=== PATIENT | male | born 1980 | race Caucasian/White ===

== ENCOUNTER 2017-06-21 10:29 | Emergency (ER) | payer BC ==
--- NOTE | 2017-06-21 13:05 | UC ---
Respiratory Complaint HPI - HPI Summary HPI Summary: patient has had cough and cold symptoms that have worsened over the past 4 days. fever, and chest burning with deep breaths. body feels sore. - History of Current Complaint Stated Complaint: RESPIRATORY,FEVER Time Seen by Provider: 06/21/17 12:57 Hx Obtained From: Patient Onset/Duration: Sudden Onset, Lasting Days Timing: Constant Severity Initially: Moderate Severity Currently: Moderate Character: Cough: Productive Aggravating Factors: Exertion, Deep Breaths Associated Signs And Symptoms: Positive: Dyspnea, Wheezing, Nasal Congestion, Sinus Discomfort - Allergies/Home Medications Allergies/Adverse Reactions: Allergies Allergy/AdvReac Type Severity Reaction Status Date / Time No Known Allergies Allergy Verified 06/21/17 13:01 Home Medications: Home Medications Dm/Acetaminophen/Doxylamine [Night Time Cold & Flu Liquid] 30 ml PO PRN [History] Ibuprofen TAB* [Advil TAB*] 400 mg PO Q6H PRN 06/21/17 [History Confirmed ] PMH/Surg Hx/FS Hx/Imm Hx Previously Healthy: Yes - Surgical History Surgical History: Yes Surgery Procedure, Year, and Place: right wrist surgery - Family History Known Family History: Positive: Cardiac Disease, Hypertension - Social History Alcohol Use: Occasionally Substance Use Type: None Smoking Status (MU): Never Smoked Tobacco Review of Systems Constitutional: Fever, Chills, Fatigue Skin: Negative Eyes: Negative ENT: Sore Throat, Ear Ache, Sinus Congestion Respiratory: Cough Cardiovascular: Negative Gastrointestinal: Diarrhea Motor: Negative Neurovascular: Negative Musculoskeletal: Negative Neurological: Headache Psychological: Negative Is Patient Immunocompromised?: No All Other Systems Reviewed And Are Negative: Yes Physical Exam Triage Information Reviewed: Yes Appearance: Well-Nourished, Ill-Appearing, Pain Distress Vital Signs Reviewed: Yes Eye Exam: Normal ENT: Positive: Pharyngeal erythema, Nasal congestion, TMs normal Dental Exam: Normal Neck exam: Normal Neck: Positive: Supple, Nontender, No Lymphadenopathy Respiratory Exam: Normal Respiratory: Positive: Chest non-tender, Lungs clear, Normal breath sounds Cardiovascular Exam: Normal Cardiovascular: Positive: RRR, No Murmur, Pulses Normal Abdominal Exam: Normal Abdomen Description: Positive: Nontender, No Organomegaly, Soft Bowel Sounds: Positive: Present Musculoskeletal Exam: Normal Musculoskeletal: Positive: Strength Intact, ROM Intact, No Edema Neurological Exam: Normal Neurological: Positive: Alert, Muscle Tone Normal Psychological Exam: Normal Skin Exam: Normal Respiratory Course/Dx - Course Course Of Treatment: hx obtained, exam performed ,meds reviewed, flu swab obtained and is negative, treated for sinusitis and bronchitis - Differential Dx/Diagnosis Differential Diagnosis/HQI/PQRI: Bronchitis, Influenza, Laryngitis, Sinusitis Provider Diagnoses: sinusitis. bronchitis Discharge - Discharge Plan Condition: Stable Disposition: HOME Prescriptions: Albuterol HFA INHALER* [Ventolin HFA Inhaler*] 2 puff INH Q4H PRN #1 mdi PRN Reason: Sob/Wheezing Azithromyxin PHIL (NF) [Z-Phil (Zithromax) 250 mg tabs #6] 2 tab PO .TODAY, THEN 1 DAILY #6 tab predniSONE TAB* [Deltasone TAB*] 40 mg PO DAILY #14 tab Patient Education Materials: Acute Bronchitis (ED), Sinusitis (ED) Referrals: Bucky Reaves DO [Primary Care Provider] - Additional Instructions: 1. take the medication as prescribed. 2. Increase fluid intake and get plenty of rest. 3. Follow up with any worsening symptoms, cough may last for a few weeks.
[2017-06-21 13:11] VITALS: BP 130/68
== END 2017-06-21 13:41 | disposition home or self-care (01) ==
LOC: UCCORT 10:29
DX: J32.9 Chronic sinusitis, unspecified (principal); J40 Bronchitis, not specified as acute or chronic
CPT/HCPCS: 87502; 99212; G0463

== ENCOUNTER 2018-05-30 17:48 | Emergency (ER) | payer BC ==
[2018-05-30 18:17] VITALS: BP 146/86
[2018-05-30] MEDS ORDERED: ValACYclovir (*) 1 GM TAB PO ONE (18:28)
--- NOTE | 2018-05-30 18:30 | UC ---
Skin Complaint HPI - HPI Summary HPI Summary: Rash on back started last night w/ burning stinging sensation. denies stress or recent illness. - History of Current Complaint Chief Complaint: UCSkin Time Seen by Provider: 05/30/18 18:17 Stated Complaint: PAINFUL RASH ON BACK Hx Obtained From: Patient Pain Intensity: 3 Pain Scale Used: 0-10 Numeric Location: Discrete Aggravating Factor(s): Nothing Alleviating Factor(s): Nothing - Allergy/Home Medications Allergies/Adverse Reactions: Allergies Allergy/AdvReac Type Severity Reaction Status Date / Time No Known Allergies Allergy Verified 05/30/18 18:14 PMH/Surg Hx/FS Hx/Imm Hx Previously Healthy: Yes - Surgical History Surgical History: Yes Surgery Procedure, Year, and Place: right wrist surgery. LEFT WRIST/ELBOW - Family History Known Family History: Positive: Cardiac Disease, Hypertension - Social History Alcohol Use: Rare Substance Use Type: None Smoking Status (MU): Never Smoked Tobacco Review of Systems All Other Systems Reviewed And Are Negative: Yes Constitutional: Positive: Negative. Negative: Fever Skin: Positive: Rash Musculoskeletal: Negative: Arthralgia, Myalgia Physical Exam Triage Information Reviewed: Yes Vital Signs: Initial Vital Signs Temp 98.7 F 05/30/18 18:16 Pulse 94 05/30/18 18:16 Resp 16 05/30/18 18:16 BP 146/86 05/30/18 18:16 Pulse Ox 98 05/30/18 18:16 Vital Signs Reviewed: Yes Skin: Positive: Rashes - discrete linear patch of vesicles some dried; on R side of upper back does not cross the midline Course/Dx - Course Course Of Treatment: First episode of Shingles outbreak on his back. Win the limit to tx w/ anti-viral so started tonight w/ tx. FEw new vesciles noted. vitals good. - Differential Diagnoses - Skin Complaint Differential Diagnoses: Impetigo, Poison Loren, Viral Exanthem - Diagnoses Provider Diagnosis: Shingles Discharge - Sign-Out/Discharge Documenting (check all that apply): Patient Departure All imaging exams completed and their final reports reviewed: No Studies - Discharge Plan Condition: Good Disposition: HOME Prescriptions: ValACYclovir (*) [Valtrex 1 GM(*)] 1 gm PO TID 7 Days #21 tab Patient Education Materials: Shingles (ED) Referrals: Bucky Reaves DO [Primary Care Provider] - Additional Instructions: IF not improving please follow up with your pcp - Billing Disposition and Condition Condition: GOOD Disposition: Home
[2018-05-30] MEDS ORDERED: Acyclovir* 200 MG CAP PO ONE (18:31)
== END 2018-05-30 18:40 | disposition home or self-care (01) ==
LOC: UCCORT 17:48
DX: B02.9 Zoster without complications (principal)
CPT/HCPCS: 99212; A9270-GY; G0463

== ENCOUNTER 2018-06-02 16:20 | Emergency (ER) | payer BC ==
[2018-06-02 16:46] VITALS: BP 154/91
--- NOTE | 2018-06-02 16:51 | UC ---
UC General HPI - HPI Summary HPI Summary: RECENTLY DX WITH SHINGLES. HAVING PAIN. REQUESTING GABAPENTIN. HAS APPT WITH PCP IN 6 DAYS. - History of Current Complaint Chief Complaint: MARISOLkin Stated Complaint: RECHECK SHINGLES Time Seen by Provider: 06/02/18 16:44 Hx Obtained From: Patient Pain Intensity: 5 Associated Signs & Symptoms: Negative: Fever - Allergy/Home Medications Allergies/Adverse Reactions: Allergies Allergy/AdvReac Type Severity Reaction Status Date / Time No Known Allergies Allergy Verified 06/02/18 16:44 Home Medications: Home Medications Ibuprofen TAB* [Motrin TAB* 400 MG] 400 mg PO Q6H PRN 06/02/18 [History Confirmed 06/02/18] PMH/Surg Hx/FS Hx/Imm Hx - Additional Past Medical History Additional PMH: SHINGLES - Surgical History Surgical History: Yes Surgery Procedure, Year, and Place: right wrist surgery. LEFT WRIST/ELBOW - Family History Known Family History: Positive: Cardiac Disease, Hypertension - Social History Alcohol Use: Rare Substance Use Type: None Smoking Status (MU): Never Smoked Tobacco Review of Systems All Other Systems Reviewed And Are Negative: Yes Constitutional: Positive: Negative Skin: Positive: Rash - WITH PAIN Eyes: Positive: Negative ENT: Positive: Negative Respiratory: Positive: Negative Cardiovascular: Positive: Negative Gastrointestinal: Positive: Negative Genitourinary: Positive: Negative Motor: Positive: Negative Neurovascular: Positive: Negative Musculoskeletal: Positive: Negative Neurological: Positive: Negative Psychological: Positive: Negative Physical Exam Triage Information Reviewed: Yes Appearance: Well-Appearing Vital Signs: Initial Vital Signs Temp 98.4 F 06/02/18 16:42 Pulse 90 06/02/18 16:42 Resp 18 06/02/18 16:42 BP 154/91 06/02/18 16:42 Pulse Ox 99 06/02/18 16:42 Vital Signs Reviewed: Yes Eyes: Positive: Conjunctiva Clear ENT: Positive: Normal ENT inspection Neck: Positive: Supple, Nontender, No Lymphadenopathy Respiratory: Positive: Lungs clear, Normal breath sounds Cardiovascular: Positive: RRR, No Murmur Abdomen Description: Positive: Nontender, No Organomegaly, Soft Bowel Sounds: Positive: Present Musculoskeletal: Positive: ROM Intact Neurological: Positive: Alert Psychological: Positive: Age Appropriate Behavior Skin Exam: Normal Skin: Positive: Rashes - R TRUNK WITH VESICLES C/W SHINGLES Course/Dx - Diagnoses Provider Diagnosis: Shingles rash Discharge - Sign-Out/Discharge Documenting (check all that apply): Patient Departure All imaging exams completed and their final reports reviewed: No Studies - Discharge Plan Condition: Stable Disposition: HOME Prescriptions: Gabapentin CAP(*) [Neurontin 100 mg CAP(*)] 100 mg PO TID 7 Days #21 cap Patient Education Materials: Shingles (ED) Referrals: Bucky Reaves DO [Primary Care Provider] - 6 Days - Billing Disposition and Condition Condition: STABLE Disposition: Home - Attestation Statements Provider Attestation: I was available for consult. This patient was seen by the PATRICK. The patient was not presented to, seen by, or examined by me. -Belen
== END 2018-06-02 16:55 | disposition home or self-care (01) ==
LOC: UCCORT 16:20
DX: B02.9 Zoster without complications (principal)
CPT/HCPCS: 99212; G0463